=== PATIENT | female | born 1945 | race Caucasian/White ===

== ENCOUNTER 2020-05-10 21:00 | Observation (INO) ==
[2020-05-10] MEDS ORDERED: ACETAMINOPHEN 1,000 MG/100 ML VIAL IV STA (21:22)
[2020-05-10] MEDS ORDERED: PROCHLORPERAZINE 1 ML IV ONE (21:22)
[2020-05-10] MEDS ORDERED: SODIUM CHLORIDE 0.9% 1000ML 1,000 ML IV ONE (21:24)
[2020-05-10 21:52] LABS: Basophils # (auto) 0.04 K/uL (0-0.2); Basophils % (auto) 0.4 %; Eosinophils % (auto) 3.1 %; Hematocrit (blood only) 39.6 % (37-47); Hemoglobin 12.5 g/dL (12.0-16.0); Immature Granulocytes # (auto) 0.03 K/uL (0.00-0.02); Immature Granulocytes % (auto) 0.3 %; Lymphocytes # (auto) 3.89 K/uL (1.2-3.4); Lymphocytes % (auto) 39.7 %; Mean Corpuscular Hemoglobin 25.4 pg (25-34); Mean Corpuscular Hgb Conc 31.6 g/dL (32-36); Mean Corpuscular Volume 80.5 fL (80-100); Mean Platelet Volume 10.3 fL (7.4-10.4); Monocytes # (auto) 0.58 K/uL (0.11-0.59); Monocytes % (auto) 5.9 %; Neutrophils # (auto) 4.97 K/uL (1.4-6.5); Neutrophils % (auto) 50.6 %; Platelet Count 360 K/uL (130-400); RDW Coefficient of Variation 14.4 % (11.5-14.5); RDW Standard Deviation 42.2 fL (36.4-46.3); Red Blood Count 4.92 M/uL (4.2-5.4); White Blood Count 9.81 K/uL (4.8-10.8)
--- NOTE | 2020-05-10 21:59 | Emergency Department Note ---
Impression & Plan Concussion, Laceration of scalp, Dizziness, Nausea ED Provider Note NAME: AGUEDA ARZOLA AGE: 74 SEX: F ARRIVES VIA: Ambulance INFORMANT: Patient, ED PROVIDER(S): Mann Huynh MD CHIEF COMPLAINT: Fall, head strike, Amnesia PLAN: Disposition: Admit MEDICAL DECISION MAKING: The patient is a pleasant 74-year-old woman with a past medical history of hypertension, hyperlipidemia who presents emergency department after having a mechanical fall where she slipped on ice and was found by her who reports that she had gone out to take the dog for a walk and had been outside for no more than 10 minutes and when he went outside she called out for him and he found her on the ground and presumed she had hit the back of her head. He was able to help her up and walked her back into the house but was concerned given that she was confused and did not remember what had occurred even where she was or what had happened. This, EMS was contacted and the patient was brought to the emergency department. The patient gradually improved recollection of the events and on arrival was alert and oriented to self, time and place knowing she was at [facility]. She still at this time did not recall what happened to her even remembering when she woke up this morning. Prior to today she denies any fevers, chills, cough, congestion, nausea, vomiting, diarrhea, urinary symptoms. She denies any known COVID-19 exposures. On arrival the patient is fatigued and uncomfortable but no acute distress, afebrile stable vital signs. She has a subtle superficial 3 cm linear laceration to her occipital scalp. No underlying bony crepitus. There is no CT L-spine midline tenderness to palpation or step-offs. Pelvis and hips are stable with full range of motion. EKG without overt acute ischemia. Chest x-ray negative for acute cardiopulmonary process. WBC, H/H and platelets within normal limits. Chemistry without metabolic acidosis. BUN/creatinine > 20 consistent with patient's clinically dry appearance. Electrolytes and LFTs unremarkable. CPK marginally elevated at 200. Opponent negative/undetectable. Lipase within normal limits. TSH within normal limits. UA without convincing evidence of infection. CT of the head was performed and negative for ICH or CVA. Tetanus status for the patient is uncertain and this was initially ordered however she does have a history of extensive allergies which may preclude administration of immunization and so we will defer this at this time. Laceration repair per PJ Edward's note. The patient continued to improve in terms of her mental status and r ecollection of events eventually recalling that she did in fact slipped on the ice. However she still would become easily orthostatic and become dizzy when sitting up. The patient's did sit with her briefly at the bedside and did feel she was back to baseline in terms of her mental status but agreed with plan for admission given persistence of symptoms. Patient is agreeable with admission for further supportive care in the setting of moderate concussion. Case was discussed with Dr. Champion, [facility] hospitalist, who will evaluate the patient for admission. Triage Nursing notes reviewed and agree them. Prior medical records reviewed Vital Signs: reviewed and remarkable for no significant abnormalities Differential diagnosis: Fracture, dislocation, contusion, intra-abdominal, pneumothorax, intrathoracic, intracranial, neurologic, compartment syndrome, rhabdomyolysis, as well as other pathologies. ER treatment provided: See below. Diagnostics interpreted by me: ECG: Normal sinus rhythm, 80 bpm, no ectopy, nonspecific ST abnormality, no overt ST elevation or depression, QTC 440, QRS 80. Cardiac Monitoring: An order for continuous cardiac monitoring was placed and demonstrated Normal sinus rhythm, 80 bpm, no ectopy. Laboratory studies: See below Imaging studies: CT head/brain wo con CLINICAL HISTORY: 74 years-old Female with fall, headstrike, pain,. Acute head injury status post fall TECHNIQUE: Multiple axial CT images of the head were obtained without contrast. A dose lowering technique was utilized adhering to the principles of ALARA. CT DOSE: 537.48 mGy.cm COMPARISON: None. FINDINGS: No acute intracranial hemorrhage, midline shift, intra-axial mass, hydrocephalus, territorial ischemia or abnormal extra-axial collection. Mild age-related involutional changes. Patchy white matter hypodensities suggest chronic microvascular ischemic disease. 7 mm calcification versus calcified meningioma is noted involving the anterior aspect of the falx cerebri near the vertex. No acute calvarial fracture. Small contusion with laceration of the left parietal scalp in the vertex. There is no opaque foreign body. The paranasal sinuses, mastoid air cells, and middle ear cavities are clear. IMPRESSION: 1. No acute intracranial abnormality or calvarial fracture. 2. Small contusion with laceration of the left parietal scalp near the vertex. Consultation(s): Case was discussed with Dr. Champion, [facility] hospitalist, who will evaluate the patient for admission. HPI: The patient is a pleasant 74-year-old woman with a past medical history of hypertension, hyperlipidemia who presents emergency department after having a mechanical fall where she slipped on ice and was found by her who reports that she had gone out to take the dog for a walk and had been outside for no more than 10 minutes and when he went outside she called out for him and he found her on the ground and presumed she had hit the back of her head. He was able to help her up and walked her back into the house but was concerned given that she was confused and did not remember what had occurred even where she was or what had happened. This, EMS was contacted and the patient was brought to the emergency department. The patient gradually improved recollection of the events and on arrival was alert and oriented to self, time and place knowing she was at [facility]. She still at this time did not recall what happened to her even remembering when she woke up this morning. Prior to today she denies any fevers, chills, cough, congestion, nausea, vomiting, diarrhea, urinary symptoms. She denies any known COVID-19 exposures. ROS: See above HPI for pertinent positives & negatives. A total of 10 systems reviewed and were otherwise negative. PAST MEDICAL HISTORY:See Below PAST SURGICAL HISTORY:See Below FAMILY HISTORY:See Below SOCIAL HISTORY:See Below HOME MEDICATIONS:See Below ALLERGIES:See Below VITALS:See Below PHYSICAL EXAMINATION: GENERAL: Awake, alert, uncomfortable-appearing, in no distress HENT: Normocephalic, 3 cm linear laceration to occipital scalp with mild surrounding contusion. Oropharynx with dry mucous membranes and otherwise unremarkable. . EYES: Normal conjunctiva. Sclera non-icteric. EOMI. No nystamgus. PEARRL. NECK: Supple. No nuchal rigidity. FROM. No JVD. RESPIRATORY: Clear to auscultation. CARDIAC: Tachycardic rate, normal rhythm. Extremities warm and well perfused. Pulses equal. ABDOMEN: Soft, non-distended. No tenderness to palpation. No rebound or guarding. No masses. RECTAL: Deferred. MUSCULOSKELETAL: Chest examination reveals no tenderness. The back is symmetrical on inspection without obvious abnormality. There is no CVA tenderness to palpation. No joint edema. LOWER EXTREMITIES: Calves are equal size bilaterally and non-tender. No edema. No discoloration. NEURO: Normal sensorium. No sensory or motor deficits noted. 5/5 strength and SILT x 4 extremities. Cerebellar function intact including [id number]-rh-[id number], alternating palms, bbmr-[id number]. SKIN: No rash or jaundice noted. ED COURSE: Procedures: Laceration repair per MARIO Edward's note. 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 marital status: Current Living Situation: Spouse current occupational status: retired Feels Safe at Home: Yes Physical Activity Frequency: Does not Exercise Seatbelt Use: always Sunscreen Use: Yes Allergies Allergies Allergy/AdvReac Type Severity Reaction Status Date / Time mold Allergy Severe ITCHY Verified 05/10/20 23:02 EYES, SNEEZING, CONGESTION tree and shrub pollen Allergy Severe ITCHY Verified 05/10/20 23:02 EYES, SNEEZING, CONGESTION cat dander Allergy Intermediate ITCHY Verified 05/10/20 23:02 EYES, SNEEZING, CONGESTION beef derived (bovine) Allergy Unknown Unknown Verified 05/10/20 23:02 pork derived (porcine) Allergy Unknown Unknown Verified 05/10/20 23:02 Uryhuuayv-Sfelq-3,3-Galactose AdvReac Severe Rash, Verified 05/10/20 23:02 (Alph Diarrhea, BP drop Iodinated Contrast Media AdvReac Severe Hives Verified 05/10/20 23:02 [Iodinated Contrast- Oral and IV Dye] moxifloxacin [From Avelox] AdvReac Intermediate VERTIGO Verified 05/10/20 23:02 Home Meds Home Medications Medication Instructions Recorded Confirmed aspirin 81 mg tablet,delayed 81 mg PO QAM 12/14/18 05/10/20 release coenzyme Q10 200 mg capsule 200 mg PO DAILY 05/22/19 05/10/20 atorvastatin 20 mg PO DAILY 05/10/20 05/10/20 candesartan 16 mg PO DAILY 05/10/20 05/10/20 esomeprazole magnesium [Nexium] 20 mg PO DAILY 05/10/20 05/10/20 metoprolol succinate 25 mg PO DAILY 05/10/20 05/10/20 Results & Data (ED) Vital Signs Vital Signs - 24 hr 05/10/20 21:07 05/10/20 21:10 05/10/20 21:15 Temperature 36.9 C Temperature Source Oral Pulse Rate 88 90 80 Pulse Rate [Apical] Pulse Rate from SpO2 Sensor Respiratory Rate 17 18 18 Respiratory Effort / Characteristics Respiratory Depth Blood Pressure 167/100 H 167/100 H Blood Pressure [Left Arm] Blood Pressure Mean 110 122 Blood Pressure Mean [Left Arm] Blood Pressure Position [Left Arm] Pulse Oximetry 98 Oxygen Delivery Method Sepsis Recent Fever Within 48 Hours No Sepsis New/Unexplained Change in Mental Status No Sepsis Action Taken by Nursing No Action Required 05/10/20 21:28 05/10/20 21:30 05/10/20 21:31 Temperature Temperature Source Pulse Rate 86 90 Pulse Rate [Apical] Pulse Rate from SpO2 Sensor Respiratory Rate 16 18 Respiratory Effort / Characteristics Respiratory Depth Blood Pressure 152/74 H Blood Pressure [Left Arm] Blood Pressure Mean 96 Blood Pressure Mean [Left Arm] Blood Pressure Position [Left Arm] Pulse Oximetry 98 Oxygen Delivery Method Room Air Sepsis Recent Fever Within 48 Hours Sepsis New/Unexplained Change in Mental Status Sepsis Action Taken by Nursing 05/10/20 22:00 05/10/20 22:01 05/10/20 22:30 Temperature Temperature Source Pulse Rate 86 82 94 H Pulse Rate [Apical] Pulse Rate from SpO2 Sensor 93 H Respiratory Rate 17 15 14 Respiratory Effort / Characteristics Respiratory Depth Blood Pressure 156/80 H 151/68 H Blood Pressure [Left Arm] Blood Pressure Mean 108 90 Blood Pressure Mean [Left Arm] Blood Pressure Position [Left Arm] Pulse Oximetry 97 Oxygen Delivery Method Sepsis Recent Fever Within 48 Hours Sepsis New/Unexplained Change in Mental Status Sepsis Action Taken by Nursing 05/10/20 22:31 05/10/20 23:14 05/10/20 23:30 Temperature Temperature Source Pulse Rate 102 H Pulse Rate [Apical] 98 H Pulse Rate from SpO2 Sensor 99 H 93 H Respiratory Rate 15 13 14 Respiratory Effort / Characteristics Non-Labored Spontaneous Respiratory Depth Normal Blood Pressure 143/73 H Blood Pressure [Left Arm] 164/78 H Blood Pressure Mean 108 Blood Pressure Mean [Left Arm] 106 Blood Pressure Position [Left Arm] Sitting Pulse Oximetry 96 98 98 Oxygen Delivery Method Room Air Sepsis Recent Fever Within 48 Hours Sepsis New/Unexplained Change in Mental Status Sepsis Action Taken by Nursing 05/10/20 23:31 05/11/20 00:01 05/11/20 00:30 Temperature Temperature Source Pulse Rate 107 H 105 H Pulse Rate [Apical] Pulse Rate from SpO2 Sensor 96 H 107 H 104 H Respiratory Rate 13 24 13 Respiratory Effort / Characteristics Respiratory Depth Blood Pressure 136/58 L 157/69 H Blood Pressure [Left Arm] Blood Pressure Mean 90 90 Blood Pressure Mean [Left Arm] Blood Pressure Position [Left Arm] Pulse Oximetry 95 97 96 Oxygen Delivery Method Room Air Room Air Sepsis Recent Fever Within 48 Hours Sepsis New/Unexplained Change in Mental Status Sepsis Action Taken by Nursing Laboratory Data Attestation: I reviewed the patient's lab results. Result diagrams: 05/10/20 21:37 05/10/20 21:37 Lab Results 05/10/20 05/10/20 05/10/20 Range/Units 21:37 21:37 21:37 WBC 9.81 (4.8-10.8) K/uL RBC 4.92 (4.2-5.4) M/uL Hgb 12.5 (12.0-16.0) g/dL Hct 39.6 (37-47) % MCV 80.5 (80-100) fL MCH 25.4 (25-34) pg MCHC 31.6 L (32-36) g/dL RDW Std Deviation 42.2 (36.4-46.3) fL RDW Coeff of Sonal 14.4 (11.5-14.5) % Plt Count 360 (130-400) K/uL MPV 10.3 (7.4-10.4) fL Immature Gran % (Auto) 0.3 % Neut % (Auto) 50.6 % Lymph % (Auto) 39.7 % [place] % (Auto) 5.9 % Eos % (Auto) 3.1 % Baso % (Auto) 0.4 % Neut # (Auto) 4.97 (1.4-6.5) K/uL Lymph # (Auto) 3.89 H (1.2-3.4) K/uL [place] # (Auto) 0.58 (0.11-0.59) K/uL Eos # (Auto) 0.30 (0-0.5) K/uL Baso # (Auto) 0.04 (0-0.2) K/uL Immature Gran # (Auto) 0.03 H (0.00-0.02) K/uL PT 10.9 (9.0-12.0) Seconds INR 1.0 (0.9-1.1) APTT 25.9 (21.0-31.0) Seconds PTT Ratio 0.9 Sodium 140 (136-145) mmol/L Potassium 3.5 (3.5-5.1) mmol/L Chloride 105 (98-107) mmol/L Carbon Dioxide 28 (21-32) mmol/L Anion Gap 7.0 (3-11) BUN 23 H (7-18) mg/dl Creatinine 0.88 (0.6-1.2) mg/dl Est Cr Clr Drug Dosing 45.4 ml/min Est GFR ( Amer) 74.0 Est GFR (Non-Af Amer) 63.8 BUN/Creatinine Ratio 26.3 H (10-20) Glucose 123 H (70-99) mg/dl Calcium 9.8 (8.5-10.1) mg/dl Phosphorus 2.9 (2.5-4.9) mg/dl Magnesium 1.9 (1.8-2.4) mg/dl Total Bilirubin 0.3 (0.2-1) mg/dl Direct Bilirubin < 0.1 (0-0.2) mg/dl AST 29 (15-37) U/L ALT 38 (12-78) U/L Alkaline Phosphatase 122 H (45-117) U/L Total Creatine Kinase 207 H (26-192) U/L Troponin I < 0.015 (0-0.045) ng/ml Total Protein 7.9 (6.4-8.2) gm/dl Albumin 3.8 (3.4-5.0) gm/dl Globulin 4.1 H (2.5-4.0) gm/dl Albumin/Globulin Ratio 0.9 (0.9-2) Lipase 120 (73-393) U/L TSH 1.910 (0.300-4.500) uIu/ml Urine Color Urine Appearance (Clear) Urine pH (4.5-7.5) Ur Specific [place] (1.000-1.030) Urine Protein (Negative) Urine Glucose (UA) (Negative) Urine Ketones (Negative) Urine Blood (Negative) Urine Nitrite (Negative) Urine Bilirubin (Negative) Urine Urobilinogen (Negative) Ur Leukocyte Esterase (Negative) Urine WBC (Auto) (0-5) /hpf Urine RBC (Auto) (0-4) /hpf U Hyaline Cast (Auto) (0-5) /lpf U Epithel Cells (Auto) (0-5) /lpf Urine Bacteria (Auto) (Negative) SARS-CoV-2 Ag (Rapid) (Negative) 05/10/20 05/11/20 Range/Units 23:50 01:11 WBC (4.8-10.8) K/uL RBC (4.2-5.4) M/uL Hgb (12.0-16.0) g/dL Hct (37-47) % MCV (80-100) fL MCH (25-34) pg MCHC (32-36) g/dL RDW Std Deviation (36.4-46.3) fL RDW Coeff of Sonal (11.5-14.5) % Plt Count (130-400) K/uL MPV (7.4-10.4) fL Immature Gran % (Auto) % Neut % (Auto) % Lymph % (Auto) % [place] % (Auto) % Eos % (Auto) % Baso % (Auto) % Neut # (Auto) (1.4-6.5) K/uL Lymph # (Auto) (1.2-3.4) K/uL [place] # (Auto) (0.11-0.59) K/uL Eos # (Auto) (0-0.5) K/uL Baso # (Auto) (0-0.2) K/uL Immature Gran # (Auto) (0.00-0.02) K/uL PT (9.0-12.0) Seconds INR (0.9-1.1) APTT (21.0-31.0) Seconds PTT Ratio Sodium (136-145) mmol/L Potassium (3.5-5.1) mmol/L Chloride (98-107) mmol/L Carbon Dioxide (21-32) mmol/L Anion Gap (3-11) BUN (7-18) mg/dl Creatinine (0.6-1.2) mg/dl Est Cr Clr Drug Dosing ml/min Est GFR ( Amer) Est GFR (Non-Af Amer) BUN/Creatinine Ratio (10-20) Glucose (70-99) mg/dl Calcium (8.5-10.1) mg/dl Phosphorus (2.5-4.9) mg/dl Magnesium (1.8-2.4) mg/dl Total Bilirubin (0.2-1) mg/dl Direct Bilirubin (0-0.2) mg/dl AST (15-37) U/L ALT (12-78) U/L Alkaline Phosphatase (45-117) U/L Total Creatine Kinase (26-192) U/L Troponin I (0-0.045) ng/ml Total Protein (6.4-8.2) gm/dl Albumin (3.4-5.0) gm/dl Globulin (2.5-4.0) gm/dl Albumin/Globulin Ratio (0.9-2) Lipase (73-393) U/L TSH (0.300-4.500) uIu/ml Urine Color Yellow Urine Appearance Clear (Clear) Urine pH 7.5 (4.5-7.5) Ur Specific [place] 1.011 (1.000-1.030) Urine Protein Negative (Negative) Urine Glucose (UA) Trace H (Negative) Urine Ketones Negative (Negative) Urine Blood 1+ H (Negative) Urine Nitrite Negative (Negative) Urine Bilirubin Negative (Negative) Urine Urobilinogen Negative (Negative) Ur Leukocyte Esterase Negative (Negative) Urine WBC (Auto) 1-5 (0-5) /hpf Urine RBC (Auto) 5-10 H (0-4) /hpf U Hyaline Cast (Auto) 0 (0-5) /lpf U Epithel Cells (Auto) 0-5 (0-5) /lpf Urine Bacteria (Auto) Negative (Negative) SARS-CoV-2 Ag (Rapid) Negative (Negative) Administered Medications Discontinued Medications Diphenhydramine HCl (Diphenhydramine 50 Mg/Ml Vial) Confirm Administered Dose 50 mg .ROUTE .STK-MED ONE Stop: 05/10/20 23:45 Last Admin: 05/10/20 23:46 Dose: 25 mg Documented by: [id number] Diphenhydramine HCl (Diphenhydramine 50 Mg/Ml Vial) 25 mg IV NOW STA Stop: 05/10/20 23:47 Last Admin: 05/10/20 23:49 Dose: Not Given Documented by: [id number] Diphtheria/Pertussis/Tetanus Vacc (Diphtheria/Tetanus/Pertussis 0.5 Ml Syr/Vial) 0.5 ml IM .ONCE ONE Stop: 05/10/20 22:46 Last Admin: 05/10/20 23:48 Dose: Not Given Documented by: [id number] Acetaminophen (Ofirmev) 1,000 mg in 100 mls @ 400 mls/hr IV NOW STA Stop: 05/10/20 21:36 Last Infusion: 05/10/20 22:33 Dose: 0 mls/hr Documented by: [id number] Admin: 05/10/20 22:03 Dose: 400 mls/hr Documented by: [id number] Prochlorperazine (Compazine) 1 mls @ 1 mls/min IV ONE ONE Stop: 05/10/20 21:23 Last Admin: 05/10/20 22:03 Dose: 1 mls/min Documented by: [id number] Sodium Chloride (Nss 1000ml) 1,000 mls @ 999 mls/hr IV .Q1H1M ONE Stop: 05/10/20 22:24 Last Infusion: 05/10/20 23:37 Dose: 0 mls/hr Documented by: [id number] Admin: 05/10/20 22:03 Dose: 999 mls/hr Documented by: [id number] Sodium Chloride (Nss) 500 mls @ 999 mls/hr IV .Q31M ONE Stop: 05/10/20 23:27 Last Infusion: 05/11/20 00:33 Dose: 0 mls/hr Documented by: [id number] Admin: 05/10/20 23:37 Dose: 999 mls/hr Documented by: [id number] Prochlorperazine 5 mg/ Syringe 5 mls @ 5 mls/min IV ONE ONE Stop: 05/10/20 22:58 Last Admin: 05/10/20 23:34 Dose: 5 mls/min Documented by: [id number] Lidocaine HCl (Xylocaine 1%/Sod Bicarb 20 Ml Vial) 20 ml INFIL NOW ONE Stop: 05/10/20 22:46 Last Admin: 05/10/20 22:58 Dose: 20 ml Documented by: [id number] Lidocaine/Epinephrine (Lido/Epinephrine/Sod Bicarb 20 Ml Vial) Confirm Administered Dose 20 ml .ROUTE .STK-MED ONE Stop: 05/10/20 22:48 Last Admin: 05/10/20 22:58 Dose: Not Given Documented by: [id number] Prochlorperazine (Prochlorperazine 5 Mg/Ml 2 Ml Vial) Confirm Administered Dose 10 mg .ROUTE .STK-MED ONE Stop: 05/10/20 23:28 Last Admin: 05/10/20 23:38 Dose: Not Given Documented by: [id number] Discharge Plan Visit Data Chief Complaint: Fall Stated Complaint: FALL, HEADACHE, CONFUSION ED Provider: Mann Huynh Discharge Problem: Concussion, Laceration of scalp, Dizziness, Nausea Discharge Instructions Krames/Other Patient Handouts: ED Head Injury (Adult) Activity Restrictions/Additional Instructions: Read head injury handout and return for any symptoms. Keep wound clean and dry. No water on the area for 12-24 hrs then no soaking until trevor removed. Do not allow any crusting or dried blood to accumulate on trevor. If this occurs, use a 1:1 solution of hydrogen peroxide/water on a Q-tip to clean the wound. Use an antibiotic ointment for 3-4 days, then let wound dry. Staple removal in 8 days. Return sooner for any signs of infection (increasing redness, swelling, drainage). Ice and elevate for swelling and pain. Tylenol 1000 mg every 6 hrs for pain. Keep covered when in sun until trevor removed then SPF 50 or higher for one year. Vitamin E oil if desired two weeks after staple removal for reduction of scar. Forms Stand Alone Forms: [facility] Prescriptions Prescriptions: No Action coenzyme Q10 200 mg capsule 200 mg PO DAILY RF: 0 aspirin [Adult Low Dose Aspirin] 81 mg tablet,delayed release (DR/EC) 81 mg PO QAM RF: 0 atorvastatin 20 mg tablet 20 mg PO DAILY RF: 0 candesartan 16 mg tablet 16 mg PO DAILY RF: 0 metoprolol succinate 25 mg tablet extended release 24 hr 25 mg PO DAILY RF: 0 esomeprazole magnesium [Nexium] 20 mg Capsule,Delayed Release(Dr/Ec) 20 mg PO DAILY RF: 0 Referrals Referrals: Jose Morillo MD [Primary Care Provider] - Discharge Problem: Concussion Qualifiers: Encounter type: initial encounter Loss of consciousness presence/duration: with LOC of unspecified duration Qualified Code(s): S06.0X9A - Concussion with loss of consciousness of unspecified duration, initial encounter Laceration of scalp Qualifiers: Encounter type: initial encounter Qualified Code(s): S01.01XA - Laceration without foreign body of scalp, initial encounter
[2020-05-10 22:01] LABS: Partial Thromboplastin Ratio 0.9; Partial Thromboplastin Time 25.9 Seconds (21.0-31.0); Prothrombin Time 10.9 Seconds (9.0-12.0)
[2020-05-10 22:20] LABS: Alanine Aminotransferase 38 U/L (12-78); Albumin Level 3.8 gm/dl (3.4-5.0); Aspartate Aminotransferase 29 U/L (15-37); BUN Creatinine Ratio 26.3 (10-20); Bilirubin Direct < 0.1 mg/dl (0-0.2); Blood Urea Nitrogen 23 mg/dl (7-18); Calcium 9.8 mg/dl (8.5-10.1); Carbon Dioxide 28 mmol/L (21-32); Chloride 105 mmol/L (98-107); Creatinine Clr Calc Pharmacy 45.4 ml/min; Est GFR (Non-African American) 63.8; Glucose 123 mg/dl (70-99); Lipase 120 U/L (73-393); Magnesium 1.9 mg/dl (1.8-2.4); Potassium 3.5 mmol/L (3.5-5.1); Sodium 140 mmol/L (136-145)
[2020-05-10 22:28] LABS: Albumin Globulin Ratio 0.9 (0.9-2); Alkaline Phosphatase 122 U/L (45-117); Bilirubin,Total 0.3 mg/dl (0.2-1); Creatine Kinase 207 U/L (26-192); Globulin 4.1 gm/dl (2.5-4.0); Phosphorus 2.9 mg/dl (2.5-4.9); Total Protein 7.9 gm/dl (6.4-8.2); Troponin I < 0.015 ng/ml (0-0.045)
--- NOTE | 2020-05-10 22:32 | CT Scan Report ---
CT head/brain wo con CLINICAL HISTORY: 74 years-old Female with fall, headstrike, pain,. Acute head injury status post fa ll TECHNIQUE: Multiple axial CT images of the head were obtained without contrast. A dose lowering tech nique was utilized adhering to the principles of ALARA. CT DOSE: 537.48 mGy.cm COMPARISON: None. FINDINGS: No acute intracranial hemorrhage, midline shift, intra-axial mass, hydrocephalus, territorial ischemi a or abnormal extra-axial collection. Mild age-related involutional changes. Patchy white matter hypo densities suggest chronic microvascular ischemic disease. 7 mm calcification versus calcified meningi shakeel is noted involving the anterior aspect of the falx cerebri near the vertex. No acute calvarial fracture. Small contusion with laceration of the left parietal scalp in the vertex . There is no opaque foreign body. The paranasal sinuses, mastoid air cells, and middle ear cavities are clear. IMPRESSION: 1. No acute intracranial abnormality or calvarial fracture. 2. Small contusion with laceration of the left parietal scalp near the vertex. ACT 112: Negative or not required by law. The above report was generated using voice recognition software. It may contain grammatical, syntax o r spelling errors. Electronically signed by: Ismael Morin M.D. 05/10/2020 10:31 PM
[2020-05-10] MEDS ORDERED: XYLOCAINE 1%/SOD BICARB 20 ML VIAL INFIL ONE (22:45)
[2020-05-10] MEDS ORDERED: DIPHTHERIA/TETANUS/PERTUSSIS 0.5 ML SYR/VIAL IM ONE (22:45)
[2020-05-10] MEDS ORDERED: LIDO/EPINEPHRINE/SOD BICARB 20 ML VIAL ONE (22:47)
--- NOTE | 2020-05-10 22:48 | XRay Report ---
XR chest 1V portable HISTORY: 74 years-old Female Chest Pain acute atypical chest pain COMPARISON: Chest radiograph 04/15/2019 TECHNIQUE: Portable AP view of the chest FINDINGS: Cardiomediastinal and hilar silhouettes are within normal limits. Subcentimeter calcified granuloma o f the lateral right midlung is unchanged. There is no pneumothorax, pleural effusion, airspace consol idation or overt pulmonary edema. Calcified plaque the thoracic aorta. Degenerative changes of the sh oulders and spine. IMPRESSION: No acute process. ACT 112: Negative or not required by law. The above report was generated using voice recognition software. It may contain grammatical, syntax o r spelling errors. Electronically signed by: Ismael Morin M.D. 05/10/2020 10:47 PM
[2020-05-10] MEDS ORDERED: PROCHLORPERAZINE 5 MG in SYRINGE 4 ML IV ONE (22:57)
[2020-05-10] MEDS ORDERED: SODIUM CHLORIDE 0.9% 500 ML IV ONE (22:57)
--- NOTE | 2020-05-10 22:58 | Emergency Department Note ---
ED Visit Note Staple Repair Location: Scalp Total length: 3 cm Complexity: Simple Verbal consent was obtained after the risks and benefits were explained, i ncluding but not limited to bleeding, scarring, infection, pain, and bone/nerve damage. At this time, the risks of the procedure are less than the risks of NOT performing the procedure. A time out was taken and the correct patient and site identified. The scalp was prepped with betadine. The target area was anesthetized with 3 ml of 1% lidocaine without epinephrine. Copious irrigation was performed using saline. The skin was re-prepped with betadine, the hair cleared from the wound, and a sterile field set. The wound was explored for foreign bodies and none found. Debridement was not performed. The wound edges were approximated using 5 surgical trevor in the standard fashion. Hemostasis and excellent approximation was achieved. Antibacterial ointment and a sterile dressing applied. Detailed wound care instructions and signs and symptoms of infection reviewed with the pt. No complications and the patient tolerated the procedure well. I performed the procedure. .
[2020-05-10] MEDS ORDERED: PROCHLORPERAZINE 5 MG/ML 2 ML VIAL ONE (23:27)
[2020-05-10] MEDS ORDERED: diphenhydrAMINE 50 MG/ML VIAL ONE (23:44)
[2020-05-10] MEDS ORDERED: diphenhydrAMINE 50 MG/ML VIAL IV STA (23:46)
[2020-05-11 00:03] LABS: Appearance Urine Clear (Clear); Bacteria Urine Automated Negative (Negative); Bilirubin Urine Negative (Negative); Blood Urine 1+ (Negative); Cast Urine Automated 0 /lpf (0-5); Color Urine Yellow; Epithelial Cell Urine Auto 0-5 /lpf (0-5); Glucose Urine UA Trace (Negative); Ketones Urine Negative (Negative); Leukocyte Esterase Urine Negative (Negative); Nitrite Urine Negative (Negative); Protein Urine Negative (Negative); Specific Gravity Urine 1.011 (1.000-1.030); Urobilinogen Urine Negative (Negative); pH Urine 7.5 (4.5-7.5)
--- NOTE | 2020-05-11 01:57 | History & Physical Report ---
Date of Service May 11, 2020 Assessment & Plan (1) Concussion: 74yo C female presenting with acute mild TBI s/p mechanical fall on the ice resulting in posterior head trauma. Patient with scalp hematoma - CT head unremarkable for skull fracture or intracranial process. She is displaying amnesia for the event and some mild disorientation and slightly delayed verbal response - reportedly improving from her arrival to the ER hours prior. PERRL, neurologically intact with no deficit. GCS = 14+ (eye 4, verbal 4 with slight confusion, motor 6). Patient not on anticoagulation. No seizure. She is complaining of persistent dizziness. She lives with her elderly in a home therefore safety is a concern should she return home tonight. -Observation to medical floor -Seizure precautions -Neuro checks with GCS per protocol for mild TBI -Meclizine PRN -Tylenol PRN -Zofran PRN -PT/OT evaluation -Hold ASA for now Present on Admission?: Yes (2) Laceration of scalp: s/p repair in ER -Wound care as needed Present on Admission?: Yes (3) Dizziness: Secondary to #1 -Meclizine PRN -Fall precautions -PT/OT evaluation Present on Admission?: Yes (4) Nausea: Secondary to #1 -Zofran PRN Present on Admission?: Yes (5) Hypercholesterolemia: Chronic. Stable -Continue Atorvastatin and CoQ10 Present on Admission?: Yes (6) Hypertension: Chronic. Stable -Continue Candesartan -Continue Metoprolol -Monitor F/E/N - LR at 125mL/hr x 1 liter, monitor electroltyes, Heart healthy diet as tolerated Ppx - Low risk for DVT Code - Full per discussion with patient Dispo - Observation to medical Present on Admission?: Yes History of Present Illness Primary Care Provider: Jose Morillo MD Allergies Allergy/AdvReac Type Severity Reaction Status Date / Time mold Allergy Severe ITCHY Verified 05/10/20 23:02 EYES, SNEEZING, CONGESTION tree and shrub pollen Allergy Severe ITCHY Verified 05/10/20 23:02 EYES, SNEEZING, CONGESTION cat dander Allergy Intermediate ITCHY Verified 05/10/20 23:02 EYES, SNEEZING, CONGESTION beef derived (bovine) Allergy Unknown Unknown Verified 05/10/20 23:02 pork derived (porcine) Allergy Unknown Unknown Verified 05/10/20 23:02 Uejcgvbct-Tytdl-1,3-Galactose AdvReac Severe Rash, Verified 05/10/20 23:02 (Alph Diarrhea, BP drop Iodinated Contrast Media AdvReac Severe Hives Verified 05/10/20 23:02 [Iodinated Contrast- Oral and IV Dye] moxifloxacin [From Avelox] AdvReac Intermediate VERTIGO Verified 05/10/20 23:02 Home Medications Medication Instructions Recorded Confirmed Type aspirin 81 mg tablet,delayed 81 mg PO QAM 12/14/18 05/10/20 History release coenzyme Q10 200 mg capsule 200 mg PO DAILY 05/22/19 05/10/20 History atorvastatin 20 mg PO DAILY 05/10/20 05/10/20 History candesartan 16 mg PO DAILY 05/10/20 05/10/20 History esomeprazole magnesium [Nexium] 20 mg PO DAILY 05/10/20 05/10/20 History metoprolol succinate 25 mg PO DAILY 05/10/20 05/10/20 History Past Med/Surg History Medical History (Updated 05/11/20 @ 02:32 by Jessica Champion DO) Anxiety Bladder cancer Hypertension Surgical History History of bladder surgery S/P appendectomy S/P hysterectomy S/P knee surgery S/P thyroid surgery Family History Mother Colorectal cancer Father Heart disease Hypertension Denies family history of Ovarian cancer Prostate cancer Breast cancer Lung cancer Social History Smoking Status: Never smoker Hx Alcohol Use: No Hx Substance Use: No Communication Ability: Effective Visual Impairment: No Limitations Hearing Ability: Normal 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 marital status: Current Living Situation: Spouse current occupational status: retired Feels Safe at Home: Yes Physical Activity Frequency: Does not Exercise Seatbelt Use: always Sunscreen Use: Yes Results & Data Results & Data ([facility]) Vital Signs (Past 12 Hours) Vital Signs Temp Pulse Pulse Resp BP BP Pulse Ox 05/11/20 00:30 105 H 13 157/69 H 96 05/11/20 00:01 107 H 24 136/58 L 97 05/10/20 23:31 13 95 05/10/20 23:30 14 143/73 H 98 05/10/20 23:14 98 H 13 164/78 H 98 05/10/20 22:31 102 H 15 96 05/10/20 22:30 94 H 14 151/68 H 97 05/10/20 22:01 82 15 05/10/20 22:00 86 17 156/80 H 05/10/20 21:31 90 18 05/10/20 21:30 86 16 152/74 H 05/10/20 21:28 98 05/10/20 21:15 36.9 C 80 18 167/100 H 98 05/10/20 21:10 90 18 05/10/20 21:07 88 17 167/100 H PG Care Time/CCT Total # of Minutes Spent Total Time Spent with Patient: Total time spent is greater than 50% in coordination of care (as documented) at patient's floor/unit and/or counseling patient: Coding Level of Care Code 80638 OBS Care - Level 3 Diagnoses Concussion S06.0X9A Encounter type: initial encounter Loss of consciousness presence/duration: with LOC of unspecified duration Laceration of scalp S01.01XA Encounter type: initial encounter Dizziness R42 Nausea R11.0 Hypercholesterolemia E78.00 Hypertension I10 Hypertension type: essential hypertension (1) Concussion Encounter type: initial encounter Loss of consciousness presence/duration: with LOC of unspecified duration Qualified Code(s): S06.0X9A - Concussion with loss of consciousness of unspecified duration, initial encounter (2) Laceration of scalp Encounter type: initial encounter Qualified Code(s): S01.01XA - Laceration without foreign body of scalp, initial encounter (3) Hypertension Hypertension type: essential hypertension Qualified Code(s): I10 - Essential (primary) hypertension
[2020-05-11] MEDS ORDERED: MECLIZINE HCL 25 MG TAB PO PRN (02:32)
[2020-05-11] MEDS ORDERED: ONDANSETRON INJ 2 MG/ML 2 ML VIAL IV PRN (02:32)
[2020-05-11] MEDS ORDERED: ACETAMINOPHEN 325 MG TAB PO PRN (02:32)
[2020-05-11] MEDS ORDERED: LACTATED RINGER'S 1,000 ML IV SCH ×2 (03:00→15:00)
[2020-05-11] MEDS: PANTOprazole 40 MG TAB PO SCH (08:46)
[2020-05-11] MEDS: ATORVASTATIN 20 MG TAB PO SCH (08:46)
[2020-05-11] MEDS ORDERED: NON-FORMULARY MEDICATION (Coenzyme Q10 200 mg capsule) PO SCH (09:00)
[2020-05-11] MEDS ORDERED: METOPROLOL SUCC 25MG EXT REL TAB PO SCH (09:00)
--- NOTE | 2020-05-11 10:46 | Electrocardiogram Report ---
Test Reason : Blood Pressure : / mmHG Vent. Rate : 088 BPM Atrial Rate : 088 BPM P-R Int : 140 ms QRS Dur : 080 ms QT Int : 364 ms P-R-T Axes : 050 027 037 degrees QTc Int : 440 ms Poor data quality, interpretation may be adversely affected Normal sinus rhythm Nonspecific ST abnormality Abnormal ECG When compared with ECG of 15-APR-2019 17:05, No significant change was found Confirmed by Calin Bundy ([id number]) on 05/11/2020 10:46:18 AM Referred By: REFERRED SELF Confirmed By:Kali Bundy
--- NOTE | 2020-05-11 14:45 | History & Physical Bridge Note ---
Date of Service May 11, 2020 History & Physical Bridge Note I have examined the patient, reviewed the History & Physical and in the interval since the performance of the History & Physical I have noted the following changes of clinical significance: no changes noted Patient with increased dizziness/and some mild headache and was administered dose of meclizine, Zofran, and Tylenol and was resting comfortably (but tired) following this. She remembers taking the dog out for a walk, but nothing past that point, including the fall. BP elevated but she states even with elevations in the past never had a headache. On candesartan daily with metoprolol for HTN. Discussed with her and she felt (ENT, and is in town this weekend from [place]) could bring this in. Spoke with on the phone this afternoon, who is agreeable to bring medication and cell phone in and he is on board with watching her overnight for observation. He would like to continue to hold aspirin for month due to family member having concussion and actually having spinal bleed 1 month later. Discussed given patient without history of TIA/CVA as well, will continue to hold. Still has not yet been seen by PT/OT. He would also like meclizine prn rx at discharge for his and agreed to send at d/c. TSH 1.910. CXR without active disease, but does note subcentimeter calcified granuloma lateral RIGHT midlung, unchanged from Mar 2019. Does not appear any non-emergent chest CT was ever done. UA with trace glucose, 1+ blood, 5-10 RBC. Some component of dehydration/but given patient with hx bladder ca, recommend f/u with Urology outpatient. Could repeat UA prior to d/c to see if still with RBC, but did have slight elevation CK to 201, likely secondary to fall/being down. Per outpt note review, patient to have once yearly cystoscopy but unsure when last one was as appears she was in the middle of transitioning care to [place] from [place]. No shortness of breath. 98% on RA. Never smoker. Could consider doing tomorrow prior to discharge vs outpatient follow-up but will hold off for now as we are hydrating and would want to avoid giving pt JUWAN. CT Head no acute intracranial abnormality or calvarial fracture. Will obtain facial bone xray given reported pain to L mandible/TMJ with opening/closing. No ecchymosis or step-off deformity noted on examination. Will order additional 1L IVF given patient continues to appear dry on examination with dry mm and had not yet had much to eat secondary to some nausea. -- Repeat BMP in AM Will need suture removal in 9 days for occiput. Likely discharge in AM to home with . Will need to check about patient following up with DEXA scan as previously ordered by Dr. Sharpe. Vit D with AM labs.
--- NOTE | 2020-05-11 15:58 | Communication Note ---
Date of Service: May 11, 2020 Will also add iron studies/B12 to AM labs. Prior MCV 79 and currently 80. Has allergy to meat/beef and not on any iron supplementation. Monitor AM studies - replacement if needed.
[2020-05-11] MEDS ORDERED: hydrALAZINE HCL 20 MG/ML VIAL IV PRN (16:01)
[2020-05-11] MEDS: CANDESARTAN CILEXETIL PO SCH (18:56)
[2020-05-11] MEDS ORDERED: Nursing to Pharmacy Communication SCH (23:45)
[2020-05-12 06:12] LABS: Basophils # (auto) 0.03 K/uL (0-0.2); Basophils % (auto) 0.3 %; Eosinophils # (auto) 0.22 K/uL (0-0.5); Eosinophils % (auto) 2.2 %; Hematocrit (blood only) 38.3 % (37-47); Hemoglobin 12.2 g/dL (12.0-16.0); Immature Granulocytes # (auto) 0.02 K/uL (0.00-0.02); Immature Granulocytes % (auto) 0.2 %; Lymphocytes # (auto) 2.97 K/uL (1.2-3.4); Lymphocytes % (auto) 29.5 %; Mean Corpuscular Hemoglobin 25.7 pg (25-34); Mean Corpuscular Hgb Conc 31.9 g/dL (32-36); Mean Corpuscular Volume 80.6 fL (80-100); Mean Platelet Volume 10.1 fL (7.4-10.4); Monocytes # (auto) 0.74 K/uL (0.11-0.59); Monocytes % (auto) 7.3 %; Neutrophils % (auto) 60.5 %; Platelet Count 311 K/uL (130-400); RDW Coefficient of Variation 14.4 % (11.5-14.5); RDW Standard Deviation 42.5 fL (36.4-46.3); Red Blood Count 4.75 M/uL (4.2-5.4); White Blood Count 10.08 K/uL (4.8-10.8)
[2020-05-12 07:01] LABS: BUN Creatinine Ratio 19.5 (10-20); Calcium 9.1 mg/dl (8.5-10.1); Creatinine Clr Calc Pharmacy 57.9 ml/min; Est GFR (Non-African American) 85.4; Ferritin 85.4 ng/ml (8-388); Potassium 3.5 mmol/L (3.5-5.1)
[2020-05-12] MEDS: PANTOprazole 40 MG TAB PO SCH (08:52)
[2020-05-12] MEDS: ATORVASTATIN 20 MG TAB PO SCH (08:52)
[2020-05-12] MEDS: CANDESARTAN CILEXETIL PO SCH (08:53)
--- NOTE | 2020-05-12 14:59 | Discharge Summary ---
Date of Service May 12, 2020 Admission HPI Per Admitting Provider 74yo C female presenting with acute mild TBI s/p mechanical fall on the ice resulting in posterior head trauma. Patient with scalp hematoma - CT head unremarkable for skull fracture or intracranial process. She is displaying amnesia for the event and some mild disorientation and slightly delayed verbal response - reportedly improving from her arrival to the ER hours prior. PERRL, neurologically intact with no deficit. GCS = 14+ (eye 4, verbal 4 with slight confusion, motor 6). Patient not on anticoagulation. No seizure. She is complaining of persistent dizziness. She lives with her elderly in a home therefore safety is a concern should she return home tonight. Admission Exam Per Admitting Provider See H&P. Principal Diagnosis Concussion Discharge Exam Temp Pulse Resp BP Pulse Ox 36.7 C 77 18 161/76 H 96 05/12/20 07:38 05/12/20 07:38 05/12/20 07:38 05/12/20 07:38 05/12/20 07:38 Patient is afebril. BP elevated at 161/76. Patient is asymptomatic. Constitutional + overweight; no acute distress Eyes PERRL, conjunctivae normal, anicteric sclerae ENMT Ears: no hearing impairment Neck normal visual inspection Respiratory normal respiratory effort, lungs clear to auscultation Cardiovascular RRR, no murmur, no edema Gastrointestinal (Abdomen) Inspection/Auscultation: normal bowel sounds Percussion/Palpation: abdomen soft; abdomen nontender Neurologic awake Speech / Cognition: normal speech Motor/Sensory: normal movement Psychiatric A+Ox3, euthymic affect Discharge Data Allergies Allergy/AdvReac Type Severity Reaction Status Date / Time mold Allergy Severe ITCHY Verified 05/10/20 23:02 EYES, SNEEZING, CONGESTION tree and shrub pollen Allergy Severe ITCHY Verified 05/10/20 23:02 EYES, SNEEZING, CONGESTION cat dander Allergy Intermediate ITCHY Verified 05/10/20 23:02 EYES, SNEEZING, CONGESTION beef derived (bovine) Allergy Unknown Unknown Verified 05/10/20 23:02 pork derived (porcine) Allergy Unknown Unknown Verified 05/10/20 23:02 Zyrqgtraw-Utddo-2,3-Galactose AdvReac Severe Rash, Verified 05/10/20 23:02 (Alph Diarrhea, BP drop Iodinated Contrast Media AdvReac Severe Hives Verified 05/10/20 23:02 [Iodinated Contrast- Oral and IV Dye] moxifloxacin [From Avelox] AdvReac Intermediate VERTIGO Verified 05/10/20 23:02 prochlorperazine AdvReac Tachycardia Verified 05/11/20 06:48 [From Compazine] Consultations 05/11/20 00:45 ED Decision to Admit Stat Ordered Studies 05/10/20 21:22 CT head/brain wo con Stat Hospital Course (1) Concussion: 74yo C female presenting with acute mild TBI s/p mechanical fall on the ice resulting in posterior head trauma. Patient with scalp hematoma - CT head unremarkable for skull fracture or intracranial process. She is displaying amnesia for the event and some mild disorientation and slightly delayed verbal response - reportedly improving from her arrival to the ER hours prior. PERRL, neurologically intact with no deficit. GCS = 14+ (eye 4, verbal 4 with slight confusion, motor 6). Patient not on anticoagulation. No seizure. She is complaining of persistent dizziness. She lives with her elderly in a home therefore safety is a concern should she return home tonight. -Observation to medical floor -Seizure precautions -Neuro checks with GCS per protocol for mild TBI -Meclizine PRN -Tylenol PRN -Zofran PRN -PT/OT evaluation -Hold ASA for now Patient denies pain this morning. Vertigo persists, but improved. Denies n/v. She would like to go home today if possible. She lives with her . (2) Laceration of scalp: s/p repair in ER -Wound care as needed (3) Dizziness: Secondary to #1 -Meclizine PRN -Fall precautions -PT/OT evaluation Will d/c home on Meclizine for persistent vertigo. (4) Nausea: Secondary to #1 -Zofran PRN - Improved today. (5) Hypercholesterolemia: Chronic. Stable -Continue Atorvastatin and CoQ10 (6) Hypertension: Chronic. Systolic pressure consistently elevated in the 160s, but she is asymptomatic. -Continue Candesartan -Continue Metoprolol -Recommend f/u with PCP upon discharge for stricter management. Ppx - Low risk for DVT Code - Full per discussion with patient (7) Vitamin D deficiency: Vitamin D low at 25.7 today. Will order supplementation upon discharge today. F/u with PCP for further management. Disposition- Discharge home today. Total Time Total Time Spent Total Time Spent (In Minutes): >30 minutes Total Time Includes: Examination of the Patient, Discharge Planning, Medication Reconciliation and Communication With Other Providers Discharge Plan Discharge Items Patient Disposition: Home - Self-Care Reason For Visit: HEAD TRAUMA, AMNESIA Discharge Diagnosis: Concussion Activity: As commented below Lifting: No more than 10 pounds Lifting Comment: x 1 week Bathing: No limitations Sexual Activity: After two weeks Exercise/Sports: Gradually increase as tolerated Exercise Comment: Light activity x 1 week Driving/Machine Use: Resume 3 days after discharge Weightbearing: Full weightbearing Non-emergency contact: Primary Care Provider Call non-emergency contact if: you have any medication questions, your symptoms worsen, your pain is not controlled, your pain is worsening, your pain is unusual for you, your pain is concerning for you and you have a fever Follow-up/Referrals: Jose Morillo MD [Primary Care Provider] - Diet: Heart Healthy Addtl Attending Provider Instructions: Follow-up with PCP in 1 week. Follow-up for staple removal in 9 days. You may resume taking Aspirin in 5 days. Follow-up with urology in 2 weeks for microhematuria. Pending Studies at Discharge: No Stand-Alone Forms: My [facility] Medications and DC Order Prescriptions: New meclizine 25 mg Tablet 25 mg PO TID PRN (Reason: dizziness) 14 Days Qty: 42 RF: 0 cholecalciferol (vitamin D3) [Vitamin D3] 25 mcg (1,000 unit) capsule 25 mcg PO DAILY 30 Days Qty: 30 RF: 0 Continued coenzyme Q10 200 mg capsule 200 mg PO DAILY RF: 0 atorvastatin 20 mg tablet 20 mg PO DAILY RF: 0 candesartan 16 mg tablet 16 mg PO DAILY RF: 0 metoprolol succinate 25 mg tablet extended release 24 hr 25 mg PO DAILY RF: 0 esomeprazole magnesium [Nexium] 20 mg Capsule,Delayed Release(Dr/Ec) 20 mg PO DAILY RF: 0 Discontinued aspirin [Adult Low Dose Aspirin] 81 mg tablet,delayed release (DR/EC) 81 mg PO QAM RF: 0 Discharge Orders: Discharge Order (Routine); Ordered 05/12/20 Ordered By: Ashley Oliver/Other Patient Handouts: Coping with Concussion, Preventing Falls in the Home Admission Data Admit Date/Time: 05/11/20 01:56 Attending Provider: Jay Dooley Admit Provider: Jessica Champion Primary Care Provider: Jose Morillo. Other Providers: Jessica Champion Other Interventions: Discharge Summary Assessment (RN) Last Done: 05/12/20 15:21 Supervising Physician Co-Signing Physician Notes D/W APC Black Patient seen and examined at bedside, obtained history and physical examination. I reviewed above note and agree with it. I discussed discharge plan with APC and patient. Will recommend resting as patient sustained a concussion. Recommend limiting screen time. Coding Level of Care Code Established Pt D/C Day Management >30 mins Patient Type Established Medical Decision Making Moderate Complexity Diagnoses Concussion S06.0X9A Encounter type: initial encounter Loss of consciousness presence/duration: with LOC of unspecified duration Laceration of scalp S01.01XA Encounter type: initial encounter Dizziness R42 Nausea R11.0 Hypercholesterolemia E78.00 Hypertension I10 Hypertension type: essential hypertension Vitamin D deficiency E55.9 Time Spent (min) 60
[2020-05-12] MEDS ORDERED: METOPROLOL SUCC 25MG EXT REL TAB PO SCH (21:00)
[2020-05-13 07:39] LABS: Estimated Average Glucose 128 mg/dl; Hemoglobin A1C 6.1 % (4.5-5.6)
== END 2020-05-12 16:09 | disposition home or self-care (01) ==
LOC: 3N 21:00 → ED 21:00 → SUATTDRO 05-11 01:56 → 3N 05-11 02:15